=== PATIENT | male | born 1975 | race Caucasian/White ===

== ENCOUNTER 2016-10-15 11:00 | Emergency (ER) | payer MEDICAID, OTHER ==
[2016-10-15] MEDS ORDERED: IOPAMIDOL 370 (76%) 100 ML VIAL IV ONE (11:01)
[2016-10-15 11:29] LABS: URINE BILIRUBIN NEGATIVE (NEGATIVE); URINE BLOOD TRACE (NEGATIVE); URINE GLUCOSE (UA) NEGATIVE (NEGATIVE); URINE LEUKOCYTE ESTERASE NEGATIVE (NEGATIVE); URINE NITRITE NEGATIVE (NEGATIVE); URINE PROTEIN NEGATIVE (NEGATIVE); URINE UROBILINOGEN NORMAL (0-1 mg/dl)
[2016-10-15 11:34] LABS: URINE COLOR YELLOW
[2016-10-15 11:35] LABS: URINE APPEARANCE CLEAR
--- NOTE | 2016-10-15 12:58 | CT ---
Exam: CT angiogram chest with contrast Comparison: 05/16/2015 History: Right-sided chest pain and shortness of breath. History of PE. Technique: CT angiogram of the chest was obtained following the administration of 80 mL Isovue-370 intravenous contrast using a CT angiogram pulmonary embolism protocol which was supplemented with multiplanar 3-D reformations constructed at an independent workstation. Findings: There is no evidence of acute pulmonary thromboembolic disease to the proximal subsegmental level. Lungs are clear. There is no pleural or pericardial effusion. There is no significant mediastinal or hilar lymphadenopathy by size criteria. Limited evaluation of the upper abdomen is without acute or concerning abnormality. No worrisome osseous abnormality is identified. IMPRESSION: Negative CT angiogram of the chest. Report was uploaded to the EMR at 1254 hours 10/15/2016.
== END 2016-10-15 14:40 | disposition home or self-care (01) ==
LOC: ED 11:00
DX: M54.5 Low back pain (principal); Z86.711 Personal history of pulmonary embolism; Z79.01 Long term (current) use of anticoagulants
CPT/HCPCS: 81003; 71275; 99283 ×2; Q9967